=== PATIENT | female | born 1995 | race Caucasian/White ===

== ENCOUNTER 2023-12-28 06:25 | Inpatient (IN) | payer OTHER ==
[2023-12-28] MEDS: ELECTROLYTE-148 SOLN 500 ML IV ONE (07:40)
[2023-12-28] MEDS: CITRIC ACID/SODIUM CITRATE 30 ML UNIT-DOSE CUP PO ONE (07:55)
[2023-12-28] MEDS ORDERED: FENTANYL CITRATE/PF 50 MCG/ML VIAL ONE (07:57)
[2023-12-28] MEDS ORDERED: morphine SULFATE/PF 1 MG/2 ML (2cc Syringe - QUVA) ONE (07:57)
[2023-12-28] MEDS ORDERED: ELECTROLYTE-148 SOLN 1,000 ML IV SCH (08:00)
[2023-12-28 08:14] LABS: BASO % 0.3 % (0-2.0); EOS % 0.1 % (0-4.5); HEMATOCRIT 38.2 % (32.4-45.2); HEMOGLOBIN 12.6 GM/dL (10.7-15.3); LYMPH % 13.3 % (8-40); MCH 30.1 pg (25.7-33.7); MCHC 33.1 g/dl (32.0-36.0); MEAN CELL VOLUME 91.1 fl (80-96); MEAN PLT VOLUME 10.2 fl (7.5-11.1); MONO % 6.4 % (3.8-10.2); NEUT % 79.9 % (42.8-82.8); PLATELET COUNT 191 10^3/uL (134-434); RBC 4.19 M/mm3 (3.60-5.2); RDW 13.7 % (11.6-15.6); WHITE BLOOD COUNT 13.3 K/mm3 (4.0-10.0)
[2023-12-28] MEDS ORDERED: ceFAZolin SODIUM 1 GM VIAL ONE (08:19)
[2023-12-28 08:26] LABS: INR 0.95 (0.83-1.09); PROTHROMBIN TIME (PATIENT) 10.8 SEC (9.7-13.0)
[2023-12-28 08:29] LABS: ACTIVATED PTT 25.8 SECONDS (25.2-36.5)
[2023-12-28] MEDS ORDERED: OXYTOCIN 10 UNITS/ML VIAL ONE (08:33)
[2023-12-28 08:54] LABS: POTASSIUM 3.6 mmol/L (3.5-5.1)
[2023-12-28 08:56] LABS: BLOOD UREA NITROGEN 5.9 mg/dL (7-18); CALCIUM 8.6 mg/dL (8.5-10.1)
[2023-12-28 09:00] LABS: CREATININE 0.5 mg/dL (0.55-1.3)
[2023-12-28] MEDS: OXYTOCIN 20 UNITS in 0.9% NS 20 UNIT/1,000 ML INFUS.BAG IV SCH (09:15)
[2023-12-28 10:02] VITALS: BMI 25.8
[2023-12-28] MEDS: IBUPROFEN 800 MG/8 ML IJ IVPB PRN (13:52)
[2023-12-28] MEDS ORDERED: oxyCODONE HCL 5 MG TABLET PO PRN (21:01)
[2023-12-28] MEDS: SIMETHICONE 80 MG TAB.CHEW (FP) PO PRN (22:55)
[2023-12-29] MEDS: IBUPROFEN 600 MG TABLET (FP) PO PRN (06:02)
[2023-12-29 07:38] LABS: BASO % 0.3 % (0-2.0); EOS % 0.2 % (0-4.5); HEMATOCRIT 36.2 % (32.4-45.2); HEMOGLOBIN 11.9 GM/dL (10.7-15.3); LYMPH % 13.6 % (8-40); MCH 30.3 pg (25.7-33.7); MCHC 32.9 g/dl (32.0-36.0); MEAN CELL VOLUME 92.2 fl (80-96); MEAN PLT VOLUME 10.2 fl (7.5-11.1); MONO % 5.3 % (3.8-10.2); NEUT % 80.6 % (42.8-82.8); PLATELET COUNT 161 10^3/uL (134-434); RBC 3.92 M/mm3 (3.60-5.2); RDW 13.3 % (11.6-15.6); WHITE BLOOD COUNT 15.5 K/mm3 (4.0-10.0)
[2023-12-29] MEDS: ACETAMINOPHEN 325 MG TABLET (FP) PO PRN (07:45)
[2023-12-29] MEDS ORDERED: BISACODYL 10 MG SUPP.RECT RC PRN (09:01)
[2023-12-30] MEDS: FLU VACCINE (FLULAVAL) PF 45 MCG/0.5 ML SYRINGE 2024-2025 IM ONE (15:58)
[2023-12-30 21:40] VITALS: RESP 18
[2023-12-31 07:23] LABS: BASO % 0.3 % (0-2.0); EOS % 1.9 % (0-4.5); HEMOGLOBIN 11.6 GM/dL (10.7-15.3); LYMPH % 21.1 % (8-40); MCHC 34.1 g/dl (32.0-36.0); MEAN PLT VOLUME 9.4 fl (7.5-11.1); MONO % 6.6 % (3.8-10.2); NEUT % 70.1 % (42.8-82.8); PLATELET COUNT 203 10^3/uL (134-434); RBC 3.74 M/mm3 (3.60-5.2); RDW 13.5 % (11.6-15.6); WHITE BLOOD COUNT 12.3 K/mm3 (4.0-10.0)
[2023-12-31 10:11] VITALS: BP 101/63; PULSE 92; TEMP 97.8
== END 2023-12-31 12:05 | disposition home or self-care (01) | DRG 540 ==
LOC: JDEL 06:25 → JLDR 07:35 → J3W 11:35
PROVIDERS: ADMIT Student in an Organized Health Care Education/Training Program; ATTEND Student in an Organized Health Care Education/Training Program
PROC: 10D00Z1 Extraction of Products of Conception, Low, Open Approach (ICD-10-PCS; principal; 2023-12-28)
DX: O34.211 Maternal care for low transverse scar from previous cesarean delivery (principal); N85.8 Other specified noninflammatory disorders of uterus; Z3A.38 38 weeks gestation of pregnancy; Z37.0 Single live birth
CPT/HCPCS: 36415; 59409; 80048; 85025; 85610; 85730; 86780; 86850; 86900; 86901; 88307-TC; 90656; 94010; G0008